=== PATIENT | male | born 1975 | race Caucasian/White ===

== ENCOUNTER 2022-01-01 10:34 | Emergency (ER) | payer OTHER ==
[~2022-01-01] VITALS: Ht 175.3 cm; Wt 83.9 kg
== END 2022-01-01 13:55 | disposition home or self-care (01) ==
LOC: ER 10:34
DX: B34.9 Viral infection, unspecified (principal); L08.0 Pyoderma; B96.89 Other specified bacterial agents as the cause of diseases classified elsewhere